=== PATIENT | female | born 1975 | race Caucasian/White ===

== ENCOUNTER 2023-03-09 19:59 | Emergency (ER) | payer OTHER, SELFPAY ==
[2023-03-09 20:08] VITALS: BP 115/79; BP 122/80; PULSE 119; PULSE 93; RESP 18; TEMP 37.4; O2SAT 93; O2SAT 95; BMI 20.6
--- NOTE | 2023-03-09 20:57 | PC.NURSE ---
pt threatening to leave, and self removed c-collar, pt educated on importance of seeing ED provider and keeping c-collar on.
--- NOTE | 2023-03-09 21:32 | PC.NURSE ---
PT REQUESTED GENERIC THUMB SPLINT ADVISED PT THAT COULD NOT BE GIVEN UNLESS SEEN BY PROVIDER. PT [id number] SHE WAS LEAVING, AND EXITED DEPT.
== END 2023-03-09 21:34 | disposition left against medical advice (07) ==
PROVIDERS: Emergency Provider Emergency Medicine; PCP Physician Assistant
DX: Z04.1 Encounter for examination and observation following transport accident (principal); M54.2 Cervicalgia; M79.644 Pain in right finger(s)
CPT/HCPCS: 73120; 99281; 99283